=== PATIENT | male | born 2000 | race Caucasian/White ===

== ENCOUNTER 2021-06-01 20:39 | Emergency (ER) | payer SELFPAY ==
[2021-06-01 20:49] VITALS: BP 139/96; PULSE 66; RESP 14; TEMP 36.7; O2SAT 100
--- NOTE | 2021-06-01 21:53 | ED.DENTAL ---
HPI - Dental/Oral General Chief complaint: Dental/Oral Stated complaint: dental pain Time Seen by Provider: 06/01/21 21:30 Source: patient Mode of arrival: ambulatory Limitations: no limitations History of Present Illness HPI Narrative: 20-year-old male presents to emergency room secondary to dental pain on the right side. Is got extensive dental caries. He states has not seen a dentist in many years. He is got pain to the right upper incisor area. This is a tooth that he had a root canal done on when he was about 13 years old. He states he is got some swelling and pain discomfort gets worse the last couple days. No chills or fevers. Pain when he tries to chew food. Related Data Allergies Allergy/AdvReac Type Severity Reaction Status Date / Time No Known Allergies Allergy Unverified 10/16/11 16:24 Review of Systems Review of Systems: CONSTITUTIONAL: Denies fever, chills, or sweats. EYES: Denies visual changes, redness, or discharge. ENT: Denies rhinorrhea, congestion, sore throat, or otalgia. CARDIOVASCULAR: Denies chest pain, palpitations, or edema. RESPIRATORY: Denies cough or dyspnea. GASTROINTESTINAL: Denies abdominal pain, nausea, vomiting, or diarrhea. GENITOURINARY: Denies dysuria or hematuria. SKIN: Denies rash or itching. MUSCULOSKELETAL: Denies back pain, joint pain, or myalgia. NEUROLOGIC: Denies headache, numbness, or weakness. PSYCHIATRIC: Denies anxiety or depression. PMFSH Past Medical History Medical History Diverticulosis Exam Narrative: APPEARANCE: Well appearing, no pain or distress, well-nourished. Head normocephalic and atraumatic. EYES: PERRLA/EOMI, conjunctivae very clear. NOSE: Normal with no drainage EARS:TMS clear Julius Vega, with good light reflex. THROAT: Extensive dental caries of both upper and lower on both sides. No to have swelling and tenderness to the right cheek. No has from swelling to the right upper gums associated with extensive dental caries in this region as well. NECK: Supple. No adenopathy, no masses. RESPIRATORY: Airway patent, respirations nonlabored. Clear to auscultation bilaterally, no rales, rhonchi, wheezing. CARDIOVASCULAR: Regular rate and rhythm without murmurs, rubs, or gallops. ABDOMINAL: Soft, nontender, nondistended, no hepatosplenomegaly Musculoskeletal: Moves all extremities. Strength/ROM intact, No edema, No calf tenderness. NEURO: Alert. Cranial nerves II through XII intact. Normal gait. Good coordination. Nonfocal examination. SKIN:: Warm, dry. Normal Color PSYCHIATRIC: Normal affect/mood, normal interaction Course Vital Signs Vital signs: Vital Signs Temperature 98.1 F 06/01/21 20:49 Pulse Rate 66 06/01/21 20:49 Respiratory Rate 14 06/01/21 20:49 Blood Pressure 139/96 H 06/01/21 20:49 Pulse Oximetry 100 06/01/21 20:49 Temperature 98.1 F 06/01/21 20:49 Pulse Rate 66 06/01/21 20:49 Respiratory Rate 14 06/01/21 20:49 Blood Pressure 139/96 H 06/01/21 20:49 Pulse Oximetry 100 06/01/21 20:49 MDM - Dental/Oral MDM Narrative Medical decision making narrative: Presentation is consistent with dental pain secondary to extensive dental caries. As the onset of the pain is more sudden over the last day or so does get some swelling concerned is got secondary infection. We will give him something for pain as well as put him on some antibiotics. Advised the patient he must follow-up with a dentist promptly. Discharge Plan Discharge Clinical Impression: Toothache, Dental caries, Gingivitis Patient Disposition: Home, Self-Care Condition: Stable Instructions: Antibiotic Form, Toothache (ED) Additional Instructions: You must find a dentist and have a prompt follow-up. Prescriptions: New amoxicillin-pot clavulanate [Augmentin] 500-125 mg tablet 1 tablet PO Q12H Qty: 20 RF: 0 naproxen [Naprosyn] 500 mg tablet 500 mg PO BID PRN (Reason: pain) Qty:
[2021-06-01] MEDS: traMADol HCL (*CRX) 50 MG TABLET PO (22:02)
== END 2021-06-01 22:05 | disposition home or self-care (01) ==
PROVIDERS: Emergency Provider Emergency Medicine; PCP Pediatrics
DX: K02.9 Dental caries, unspecified (principal); K05.10 Chronic gingivitis, plaque induced
CPT/HCPCS: 99283; A9270